=== PATIENT | male | born 1950 | race Caucasian/White ===

== ENCOUNTER 2019-09-14 10:07 | Emergency (ER) | payer MEDICARE, SELFPAY ==
[2019-09-14 10:31] VITALS: BP 123/69; PULSE 68; RESP 16; TEMP 36.4; O2SAT 98
--- NOTE | 2019-09-14 10:33 | ED.SKABFB ---
HPI - Skin/Abscess/Foreign Bdy General Chief complaint: Skin/Abscess/Foreign Body Stated complaint: right leg swelling Source: patient and RN notes reviewed Mode of arrival: ambulatory Limitations: no limitations History of Present Illness HPI narrative: The patient, who is active on several meds, presents with right lower extremity discomfort. Patient states he noticed a couple day history, after playing tennis some atraumatic pain, redness and mild edema. Symptoms are mild, worse with palpation located on the distal anterior tibia, from small inflamed follicles. No fever, streaking, known injury, induration/abscess Related Data Home Medications Medication Instructions Recorded Confirmed carbamazepine 200 mg PO Q12H 02/12/19 09/14/19 hydrochlorothiazide 25 mg PO DAILY 02/12/19 09/14/19 levothyroxine 75 mcg PO DAILY 02/12/19 09/14/19 rosuvastatin 40 mg PO DAILY 02/12/19 09/14/19 Allergies Allergy/AdvReac Type Severity Reaction Status Date / Time No Known Allergies Allergy Verified 09/14/19 10:33 Review of Systems Review of Systems: Narrative: General/Constitutional: No weight loss,fever Eyes: N0: Redness,discharge Ears/Nose/Throat: No: Epistaxis,ear discharge Respiratory: Denies: Hemoptysis Gastrointestinal: No Vomiting, Bleeding-rectal Skin: No Lumps, REPORTS eruption Neurologic: No Focal Weakness,Sz Hematologic: Denies: Petechiae/Purpura Psychiatric: No: Suicida ideationl All Other Systems: Reviewed and Negative PMFSH Comments At time of signature, agree with nursing past medical, surgical, social and family history. There is no relevant family history pertinent to the presenting complaint Exam Narrative: Exam Narrative: General Appearance: Well-nourished, Cooperative Normocephalic Eye: PERRLA, Conjunctiva clear Mouth/Throat: Normal appearingm: Supple Respiratory: Airway patent, No respiratory distress Musculoskeletal: Moves all extremities, Non tender Skin: Warm, Dry discrete, isolated macular papular skin eruption of the right lower extremity Neurological: A&O x3, Normal affect Course Vital Signs Vital signs: Vital Signs Temperature 97.6 F 09/14/19 10:31 Pulse Rate 68 09/14/19 10:31 Respiratory Rate 16 09/14/19 10:31 Blood Pressure 123/69 09/14/19 10:31 Pulse Oximetry 98 09/14/19 10:31 Temperature 97.6 F 09/14/19 10:31 Pulse Rate 68 09/14/19 10:31 Respiratory Rate 16 09/14/19 10:31 Blood Pressure 123/69 09/14/19 10:31 Pulse Oximetry 98 09/14/19 10:31 Discharge Plan Discharge Clinical Impression: Folliculitis Patient Disposition: Home, Self-Care Condition: Stable Instructions: Antibiotic Form, Folliculitis (ED) Additional Instructions: Keep photo log of area see PMD and follow-up if not better Prescriptions: New clindamycin HCl 300 mg capsule 300 mg PO TID Qty: 21 RF: 0 mupirocin 2 % ointment 1 applic TOPICAL TID Qty: 30 RF: 0 No Action levothyroxine 75 mcg Tablet 75 mcg PO DAILY RF: 0 carbamazepine 200 mg Tablet 200 mg PO Q12H RF: 0 hydrochlorothiazide 25 mg Tablet 25 mg PO DAILY RF: 0 rosuvastatin 40 mg Tablet 40 mg PO DAILY RF: 0 Follow-up/Referrals: PHYSICIAN,INTERNAL MEDICINE NURSE [Primary Care Provider] -
== END 2019-09-14 10:50 | disposition home or self-care (01) ==
PROVIDERS: Emergency Provider Emergency Medicine
DX: L73.9 Follicular disorder, unspecified (principal); Z85.828 Personal history of other malignant neoplasm of skin; E03.9 Hypothyroidism, unspecified; I10 Essential (primary) hypertension; E78.00 Pure hypercholesterolemia, unspecified
CPT/HCPCS: 99213; G0463

== ENCOUNTER 2019-10-01 15:03 | Emergency (ER) | payer MEDICARE, SELFPAY ==
--- NOTE | 2019-10-01 15:11 | ED.SKABFB ---
HPI - Skin/Abscess/Foreign Bdy General Chief complaint: Skin/Abscess/Foreign Body Stated complaint: rash Time Seen by Provider: 10/01/19 15:15 Source: patient and RN notes reviewed History of Present Illness HPI narrative: Patient is 69-year old male who presents the urgent care with complaints of a rash between the right great toe and the second right digit. Patient states is been there for approximately 2 weeks and he has been treating it with Neosporin and mupirocin cream. Patient has been seen in the facility twice within the last 7 months for folliculitis with the last episode being September 13. Patient was treated with clindamycin and mupirocin cream at that time and area has completely cleared. 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 No other acute complaints. No acute distress noted. Patient read the plan of care. Related Data Home Medications Medication Instructions Recorded Confirmed hydrochlorothiazide 25 mg PO DAILY 02/12/19 10/01/19 levothyroxine 75 mcg PO DAILY 02/12/19 10/01/19 rosuvastatin 40 mg PO DAILY 02/12/19 10/01/19 aspirin [Adult Low Dose Aspirin] 81 mg PO DAILY 10/01/19 10/01/19 carbamazepine 200 mg PO TID 10/01/19 10/01/19 losartan 100 mg PO DAILY 10/01/19 10/01/19 Allergies Allergy/AdvReac Type Severity Reaction Status Date / Time No Known Allergies Allergy Verified 10/01/19 15:14 Review of Systems Review of Systems: Narrative: CONSTITUTIONAL: Denies fever, chills, or sweats. EYES: Denies visual changes, redness, or discharge. ENT: Denies rhinorrhea, congestion, sore throat, or otalgia. CARDIOVASCULAR: Denies chest pain, palpitations, or edema. RESPIRATORY: Denies cough or dyspnea. GASTROINTESTINAL: Denies abdominal pain, nausea, vomiting, or diarrhea. GENITOURINARY: Denies dysuria or hematuria. SKIN: Reports of a rash of cracking skin in between the right great toe and second digit MUSCULOSKELETAL: Denies back pain, joint pain, or myalgia. NEUROLOGIC: Denies headache, numbness, or weakness. All other systems reviewed are negative, except as documented in HPI. PMFSH Comments At the time of my signature, I reviewed and agree with the nursing past medical, surgical, social, and family history. There is no relevant family history pertinent to the patient complaint. Exam Narrative: Exam Narrative: GENERAL: This is a well-nourished, well-developed patient, in no apparent distress. HEAD: normocephalic, atraumatic. EYES: PERRL. Sclera clear/white. Vision is grossly intact. EARS: External ears normal NOSE: External nose normal with no obvious nasal discharge, nares without redness, no rhinorrhea. THROAT: Mucous membranes moist NECK: Neck supple SKIN: Notable flaking/crusted fungal infection noted between the right great toe and second right digit. Warm, intact with no suspicious lesions or rash, good texture and turgor. NEURO: awake, alert, and oriented to person, place and time. There were no obvious focal neurologic abnormalities. EXTREMITIES: No clubbing, cyanosis, or edema. Positive strong right pedal pulse with capillary refill less than 2 seconds Course Vital Signs Vital signs: Vital Signs Temperature 97.8 F 10/01/19 15:15 Pulse Rate 69 10/01/19 15:15 Respiratory Rate 10/01/19 15:15 Blood Pressure 146/103 H 10/01/19 15:15 Pulse Oximetry 97 10/01/19 15:15 Temperature 97.8 F 10/01/19 15:15 Pulse Rate 69 10/01/19 15:15 Respiratory Rate 20 10/01/19 15:15 Blood Pressure 146/103 H 10/01/19 15:15 Pulse Oximetry 97 10/01/19 15:15 reviewed-patient is informed that they may have pre-hypertension or hypertension based on a blood pressure reading in the department. I recommend the patient call the primary care provider listed on their discharge instructions or a physician of their choice this week to arrange follow-up for further evaluation of possible pre-hypertension or hypertension.
[2019-10-01 15:15] VITALS: BP 146/103; PULSE 69; RESP 20; TEMP 36.6; O2SAT 97
== END 2019-10-01 15:36 | disposition home or self-care (01) ==
PROVIDERS: Emergency Provider Nurse Practitioner Family; PCP Internal Medicine Endocrinology, Diabetes & Metabolism
DX: B35.3 Tinea pedis (principal); E78.00 Pure hypercholesterolemia, unspecified; I10 Essential (primary) hypertension; E03.9 Hypothyroidism, unspecified; Z85.828 Personal history of other malignant neoplasm of skin
CPT/HCPCS: 99213; G0463